=== PATIENT | female | born 1985 | race Caucasian/White ===

== ENCOUNTER 2024-06-16 05:51 | Emergency (ER) | payer OTHER, SELFPAY ==
[2024-06-16 05:54] VITALS: BP 120/94; PULSE 71; TEMP 36.4; O2SAT 100; BMI 21.6
--- NOTE | 2024-06-16 06:27 | XR_ITS ---
The [address] [address] Patient Name: SOLOMON DAVALOS MRN: [id number] date: 1985 Sex: F Assigned Patient Location: ER Current Patient Location: ER Accession/Order Number: [id number] Exam Date: 06/16/2024 06:40 Report Date: 06/16/2024 07:01 At the request of: REYES MARKER Procedure: XR tibia fibula LT 2V PROCEDURE: XR femur LT 2V, XR tibia fibula LT 2V HISTORY: skid fell onto lateral left leg COMPARISON: None. FINDINGS: BONES:No fracture, acute abnormality, or significant arthropathy. SOFT TISSUES:No visible soft tissue swelling. EFFUSION:None visible. OTHER: Negative. XR/XR tibia fibula LT 2V IMPRESSION: 1. No acute bone abnormality. Electronically authenticated by: SAL SOLIS Date: 06/16/2024 07:01
--- NOTE | 2024-06-16 06:27 | XR_ITS ---
The [address] [address] Patient Name: SOLOMON DAVALOS MRN: [id number] date: 1985 Sex: F Assigned Patient Location: ER Current Patient Location: ER Accession/Order Number: [id number] Exam Date: 06/16/2024 06:40 Report Date: 06/16/2024 07:01 At the request of: REYES MARKER Procedure: XR femur LT 2V PROCEDURE: XR femur LT 2V, XR tibia fibula LT 2V HISTORY: skid fell onto lateral left leg COMPARISON: None. FINDINGS: BONES:No fracture, acute abnormality, or significant arthropathy. SOFT TISSUES:No visible soft tissue swelling. EFFUSION:None visible. OTHER: Negative. XR/XR femur LT 2V IMPRESSION: 1. No acute bone abnormality. Electronically authenticated by: SAL SOLIS Date: 06/16/2024 07:01
--- NOTE | 2024-06-16 06:28 | ED_ITS ---
HPI HPI - Extremity Injury (Lower) General Chief Complaint: Extremity Injury, Lower Stated Complaint: LT LEG INJURY/BWC Time Seen by Provider: 06/16/24 06:03 Source: patient Mode of arrival: Wheelchair Limitations: no limitations History of Present Illness HPI Narrative: This 39-year-old female presents for evaluation of a left lower extremity injury. The patient states that a hot skid that was approximately 30 to 40 pounds that she was moving slipped out of her hands and fell and slid down the lateral aspect of her left leg. She has some varicose veins in the lateral aspect of her left leg and she states that she broke all of the varicose veins. She has a picture of her leg where the varicose veins are sticking out but not bleeding or appear to be broken. Since that time the swelling of the varicose veins has resolved. She did not fall. No additional injuries or complaints. Related Data Home Medications ?Medication ?Instructions ?Recorded ?Confirmed buprenorphine-naloxone sublingual 06/16/24 Allergies Allergy/AdvReac Type Severity Reaction Status Date / Time hydrocodone Allergy Severe Difficulty Verified 06/16/24 06:03 Breathing tramadol Allergy Severe Difficulty Verified 06/16/24 07:30 Breathing Penicillins Allergy Intermediate Hives Verified 06/16/24 07:30 Opioid HPI Opioid Management Most Recent Pain and Opioid Data: No Data to Display Review of Systems ROS Status of ROS 10 or more systems reviewed and unremark able except as noted in history and below Exam Narrative Exam Narrative: Vital signs and Nursing Notes reviewed: Patient is afebrile with a normal pulse, blood pressures mildly elevated at 120/94, she is not hypoxic with pulse ox of 100% on room air General: Awake, alert, oriented, no acute distress, lying comfortably on the stretcher HEENT: Normocephalic atraumatic, mucous membranes are moist and pink, eyes are clear, normal conjunctiva, vision is grossly intact Chest: Lungs are clear to auscultation with good air entry, there is no wheezing rhonchi or rales appreciated no accessory muscle use, patient is speaking in complete sentences-no chest wall tenderness to palpation CVS: Regular rate and rhythm S1-S2, no murmurs rubs or gallops, pulses are brisk and equal bilaterally Extremities: Moving all extremities, there is mild bruising and tenderness to the lateral aspect of the left leg from the distal femur to the mid to distal fibula. The patient does have some varicose veins that are notable without any bleeding, hematomas or other notable abnormality. Dorsalis pedis and posterior tibialis pulses are brisk Skin: Multiple tattoos, mild bruising to the left lateral leg with no laceration or active bleeding Neuro: No focal deficits Constitutional Vital Signs, click to edit/add: Last Vital Signs Temp 97.6 F 06/16/24 05:54 Pulse 71 06/16/24 05:54 Resp 16 06/16/24 05:54 BP 120/94 H 06/16/24 05:54 Pulse Ox 100 06/16/24 05:54 O2 Del Method Room Air 06/16/24 05:54 Course Vital Signs Vital signs: Vital Signs Temperature 97.6 F 06/16/24 05:54 Pulse Rate 71 06/16/24 05:54 Respiratory Rate 16 06/16/24 05:54 Blood Pressure 120/94 H 06/16/24 05:54 Pulse Oximetry 100 06/16/24 05:54 Oxygen Delivery Method Room Air 06/16/24 05:54 Temperature 97.6 F 06/16/24 05:54 Pulse Rate 71 06/16/24 05:54 Respiratory Rate 16 06/16/24 05:54 Blood Pressure 120/94 H 06/16/24 05:54 Pulse Oximetry 100 06/16/24 05:54 Oxygen Delivery Method Room Air 06/16/24 05:54 MDM - Extremity Injury (Lower) MDM Narrative Medical decision making narrative: This 39-year-old female who has a history of varicose veins presents for evaluation of left lateral leg pain after a 30 to 40 pound skid she was moving slipped out of her hands and slid down the lateral aspect of her left leg. She states that it busted all of the varicose veins in her leg. Clinically I do not see any sign of any broken varicose veins. She has a picture on her phone when the varicose veins did appear to be more prominent than they were during the emergency department evaluation. Her pulses are brisk and equal. X-rays were normal. She declined the need for anything for pain. She does have some what appeared to be nonthrombosed varicose veins in both legs. There is no active bleeding or notable hematoma which are concerning for them being ruptured. I explained this to her and gave her a referral to a vein specialist locally. She declined the need for anything for pain but was given a prescription for ibuprofen 600 mg to use as needed for ongoing or worsening pain and her left leg was wrapped in an Zain wrap by myself for comfort and compression. She was encouraged to wear pants at work instead of shorts and compression stockings if possible. Medical Records Medical records narrative: [place] [address] XRay Report Signed Patient: SOLOMON DAVALOS MR#: [id number] : 1985 Acct:[id number] Age/Sex: 39 / F ADM Date: 06/16/24 Loc: ER Attending Dr: Ordering Physician: Sherie Kline Date of Service: 06/16/24 Procedure(s): XR tibia fibula LT 2V Accession Number(s): [id number] cc: Sherie Marker; Physician,Non-Staff M.D.~ The [place] [address] Patient Name: SOLOMON DAVALOS MRN: [id number] date: 1985 Sex: F Assigned Patient Location: ER Current Patient Location: ER Accession/Order Number: [id number] Exam Date: 06/16/2024 06:40 Report Date: 06/16/2024 07:01 At the request of: SHERIE MARKER Procedure: XR tibia fibula LT 2V PROCEDURE: XR femur LT 2V, XR tibia fibula LT 2V HISTORY: skid fell onto lateral left leg COMPARISON: None. FINDINGS: BONES:No fracture, acute abnormality, or significant arthropathy. SOFT TISSUES:No visible soft tissue swelling. EFFUSION:None visible. OTHER: Negative. XR/XR tibia fibula LT 2V IMPRESSION: 1. No acute bone abnormality. Electronically authenticated by: SAL SOLIS Date: 06/16/2024 07:01 [place] [address] XRay Report Signed Patient: SOLOMON DAVALOS MR#: [id number] : 1985 Acct:[id number] Age/Sex: 39 / F ADM Date: 06/16/24 Loc: ER Attending Dr: Ordering Physician: Sherie Kline Date of Service: 06/16/24 Procedure(s): XR femur LT 2V Accession Number(s): [id number] cc: Sherie Klien; Physician,Non-Staff Madeline~ The [address] [address] Patient Name: SOLOMON DAVALOS MRN: [facility]:[id number] date: 1985 Sex: F Assigned Patient Location: ER Current Patient Location: ER Accession/Order Number: [id number] Exam Date: 06/16/2024 06:40 Report Date: 06/16/2024 07:01 At the request of: SHERIE KLINE Procedure: XR femur LT 2V PROCEDURE: XR femur LT 2V, XR tibia fibula LT 2V HISTORY: skid fell onto lateral left leg COMPARISON: None. FINDINGS: BONES:No fracture, acute abnormality, or significant arthropathy. SOFT TISSUES:No visible soft tissue swelling. EFFUSION:None visible. OTHER: Negative. XR/XR femur LT 2V IMPRESSION: 1. No acute bone abnormality. Electronically authenticated by: SAL SLOIS Date: 06/16/2024 07:01 Discharge Plan Discharge Stand Alone Forms: Portal Instructions Chief Complaint: Extremity Injury, Lower Clinical Impression: Contusion of leg, left Patient Disposition: Home, Self-Care Time of Disposition Decision: 07:12 Prescriptions / Home Meds: No Action buprenorphine-naloxone [Suboxone] sublingual Print Language: Greek Additional Instructions: Follow up with [facility] Use Ibuprofen and ice as needed for pain Referrals: Physician,Non-Staff, [Primary Care Provider] - 1 week Discharge Date/Time: 06/16/24 08:06
== END 2024-06-16 08:06 | disposition home or self-care (01) ==
PROVIDERS: Emergency Provider Emergency Medicine
DX: S80.12XA Contusion of left lower leg, initial encounter (principal); W20.8XXA Other cause of strike by thrown, projected or falling object, initial encounter
CPT/HCPCS: 73552; 73590; 99284